=== PATIENT | male | born 1995 | race Caucasian/White ===

== ENCOUNTER 2022-08-15 18:24 | Emergency (ER) | payer OTHER ==
[~2022-08-15] VITALS: Ht 188 cm; Wt 81.8 kg
[2022-08-15 18:42] VITALS: BP 124/65
[2022-08-15] MEDS ORDERED: LIDOcaine 1% 30ml preserv. free vial SQ STA (20:30)
[2022-08-15] MEDS ORDERED: LIDOcaine 1%/PF 5ML 10 MG/ML VIAL SQ ONE (20:40)
[2022-08-15] MEDS ORDERED: tetanus & diphtheria toxoid (Td) vaccine 0.5ml IMVAC ONE (20:50)
[2022-08-15] MEDS ORDERED: TETanus/Pertussis (Acell)/Diphther VAC/PF (Tdap-Adult) 0.5ml syringe IMVAC ONE (20:55)
== END 2022-08-15 21:00 | disposition home or self-care (01) ==
LOC: ER 18:27
DX: S61.411A Laceration without foreign body of right hand, initial encounter (principal); W45.8XXA Other foreign body or object entering through skin, initial encounter; Y93.89 Activity, other specified; Y92.89 Other specified places as the place of occurrence of the external cause; Y99.8 Other external cause status
CPT/HCPCS: 12001; 90471; 90715; 99283